=== PATIENT | male | born 1965 | race Caucasian/White ===

== ENCOUNTER 2019-09-26 14:12 | Inpatient (IN) | payer MEDICAID ==
[~2019-09-26] VITALS: Ht 182.9 cm; Wt 67.9 kg
[2019-09-26 14:15] VITALS: BP 146/93
[2019-09-26] MEDS ORDERED: POLYETHYLENE GLYCOL 17 GM PACKET PO PRN (15:00)
[2019-09-26] MEDS ORDERED: ACETAMINOPHEN 325 MG TABLET PO PRN (15:00)
[2019-09-26] MEDS ORDERED: DOCUSATE 100 MG CAPSULE PO PRN (15:00)
[2019-09-26] MEDS ORDERED: PLEASE ENTER ALLERGIES MC SCH (15:00)
[2019-09-26] MEDS ORDERED: PLEASE ENTER HEIGHT AND WEIGHT MC SCH (15:00)
[2019-09-26] MEDS ORDERED: ONDANSETRON ODT 4 MG PO PRN (15:00)
[2019-09-26] MEDS ORDERED: BISACODYL 10 MG SUPP PR PRN (15:00)
[2019-09-26 16:20] VITALS: BP 146/93
[2019-09-26 17:00] LABS: BASOPHILS # (AUTO) 0.03 x10^3/uL (0-0.1); BASOPHILS % (AUTO) 0 % (0-1); EOSINOPHILS # (AUTO) 0.06 x10^3/uL (0-0.4); EOSINOPHILS % (AUTO) 1 % (1-7); LYMPHOCYTES # (AUTO) 2.22 x10^3/uL (1-3.4); LYMPHOCYTES % (AUTO) 33 % (22-44); MD NO; MEAN CORPUSCULAR HEMOGLOBIN 32.6 pg (27.5-34.5); MEAN CORPUSCULAR HGB CONC 33.3 g/dL (33.2-36.2); MEAN CORPUSCULAR VOLUME 97.8 fL (81-97); MEAN PLATELET VOLUME 7.5 fL (7.4-10.4); MONOCYTES # (AUTO) 0.69 x10^3/uL (0.2-0.8); MONOCYTES % (AUTO) 10 % (2-9); NEUTROPHILS # (AUTO) 3.77 x10^3/uL (1.8-6.8); NEUTROPHILS % (AUTO) 56 % (42-75); PLATELET COUNT 277 x10^3/uL (130-400); RED CELL DISTRIBUTION WIDTH 13.9 % (9.4-14.8)
[2019-09-26 17:19] LABS: ALBUMIN 3.3 g/dL (3.4-5.0); ANION GAP 7 mmol/L (5-15); CALCIUM 8.7 mg/dL (8.5-10.1); CHLORIDE 109 mmol/L (98-107)
[2019-09-26 17:27] LABS: ALANINE AMINOTRANSFERASE 21 U/L (12-78); ALKALINE PHOSPHATASE 121 U/L (45-117); BILIRUBIN,TOTAL 0.5 mg/dL (0.2-1.0); CHOLESTEROL, TOTAL 259 mg/dL (140-239); CREATININE 1.26 mg/dL (0.7-1.3); FREE T4 (FREE THYROXINE) 0.94 ng/dL (0.76-1.46); HDL CHOL % 17 % (26-37); HDL CHOLESTEROL (DIRECT) 43 mg/dL (40-60); LDL CHOLESTEROL,CALCULATED 178 mg/dL (54-169); LDL/HDL RATIO 4.1 (0.5-3.0); TOTAL PROTEIN 8.2 g/dL (6.4-8.2); TRIGLYCERIDES 190 mg/dL (50-200); VLDL CHOLESTEROL 38 mg/dL (0-25)
[2019-09-26] MEDS ORDERED: DOXY100C15 PO (18:05)
[2019-09-26] MEDS ORDERED: IBUP-1840 PO (18:06)
[2019-09-26] MEDS ORDERED: MIRT15TA PO (18:06)
[2019-09-26] MEDS ORDERED: NICO-487 TD (18:06)
[2019-09-26] MEDS ORDERED: EMTR1TAB8 PO (18:06)
[2019-09-26] MEDS ORDERED: DOLU50TA PO (18:06)
[2019-09-26] MEDS ORDERED: ELVI1TAB3 PO (18:06)
[2019-09-26] MEDS ORDERED: SERT-237 PO (18:06)
[2019-09-26] MEDS: NICOTINE 21 MG/24 HR PATCH.TD24 TD SCH (18:45)
[2019-09-26 19:00] VITALS: BP 145/93
[2019-09-26 20:47] LABS: MICROSCOPIC NOT IND
[2019-09-26 20:49] LABS: CULTURE INDICATED? NO
[2019-09-26] MEDS ORDERED: TRIAMCINOLONE OINT 0.025%, 15GM TP PRN ×2 (21:00→21:30)
[2019-09-26] MEDS: IBUPROFEN 600 MG TABLET PO SCH (21:38)
[2019-09-26] MEDS: TRIAMCINOLONE CRM 0.025%, 15GM TP PRN (21:39)
[2019-09-26] MEDS: DOXYCYCLINE 100MG TABLET PO SCH (21:39)
[2019-09-27 07:20] VITALS: BP 113/71
[2019-09-27] MEDS: IBUPROFEN 600 MG TABLET PO SCH ×2 (08:49→20:08)
[2019-09-27] MEDS: FOLIC ACID 1 MG TABLET PO SCH (08:49)
[2019-09-27] MEDS: AMLODIPINE 5 MG TABLET PO SCH ×2 (08:49→20:08)
[2019-09-27] MEDS: THIAMINE 100MG TABLET PO SCH (08:50)
[2019-09-27] MEDS: DOXYCYCLINE 100MG TABLET PO SCH ×2 (08:50→20:09)
[2019-09-27] MEDS: MULTIVITAMIN 1 TABLET PO SCH (08:50)
[2019-09-27] MEDS: SERTRALINE 50MG TABLET PO SCH (14:41)
[2019-09-27] MEDS ORDERED: IBUPROFEN 200 MG TABLET PO ONE (15:00)
[2019-09-27] MEDS ORDERED: SERT-237 PO (16:28)
[2019-09-27] MEDS ORDERED: MIRT15TA PO (16:28)
[2019-09-27] MEDS ORDERED: AMLO-150 PO (16:28)
[2019-09-27] MEDS: NICOTINE 21 MG/24 HR PATCH.TD24 TD SCH (17:26)
[2019-09-27] MEDS: TRIAMCINOLONE CRM 0.025%, 15GM TP PRN (20:08)
[2019-09-27 20:13] VITALS: BP 120/82
[2019-09-27] MEDS ORDERED: TRAZODONE 50MG TABLET PO SCH (21:00)
[2019-09-28 07:10] VITALS: BP 106/68
[2019-09-28] MEDS: FOLIC ACID 1 MG TABLET PO SCH (08:41)
[2019-09-28] MEDS: SERTRALINE 50MG TABLET PO SCH (08:42)
[2019-09-28] MEDS: THIAMINE 100MG TABLET PO SCH (08:42)
[2019-09-28] MEDS: AMLODIPINE 5 MG TABLET PO SCH (08:42)
[2019-09-28] MEDS: IBUPROFEN 600 MG TABLET PO SCH (08:42)
[2019-09-28] MEDS: MULTIVITAMIN 1 TABLET PO SCH (08:42)
[2019-09-28] MEDS: DOXYCYCLINE 100MG TABLET PO SCH (08:42)
== END 2019-09-28 10:30 | disposition home or self-care (01) | DRG 751 ==
LOC: 3E 14:12
PROVIDERS: ADMIT Psychiatry & Neurology Psychosomatic Medicine; ATTEND Psychiatry & Neurology Psychosomatic Medicine
DX: F33.2 Major depressive disorder, recurrent severe without psychotic features (principal); E87.1 Hypo-osmolality and hyponatremia; R45.851 Suicidal ideations; F10.10 Alcohol abuse, uncomplicated; G47.00 Insomnia, unspecified; I10 Essential (primary) hypertension; Z72.0 Tobacco use; Z79.899 Other long term (current) drug therapy
CPT/HCPCS: 36415; 71045; 80053; 80061; 81003; 82140; 84439; 84443; 85025; 93005